=== PATIENT | female | born 1980 | race Caucasian/White ===

== ENCOUNTER → 2023-04-28 10:56 | Outpatient (REF) | payer BC, SELFPAY | LOC: RCS 10:56 | PROVIDERS: ATTENDING PHYSICIAN Nurse Practitioner Family | DX: R03.0 Elevated blood-pressure reading, without diagnosis of hypertension (principal); R00.2 Palpitations | CPT/HCPCS: 93005 ==

== ENCOUNTER → 2023-05-15 06:58 | Outpatient (REF) | payer BC, SELFPAY | LOC: RAD 06:58 | PROVIDERS: ATTENDING PHYSICIAN Internal Medicine Gastroenterology; FAMILY PHYSICIAN Nurse Practitioner Family | DX: K82.4 Cholesterolosis of gallbladder (principal) | CPT/HCPCS: 76700 ==

== ENCOUNTER → 2023-08-04 06:57 | Outpatient (REF) | payer BC, SELFPAY ==
[2023-08-04 07:29] LABS: Urine Albumin Negative (Neg - Trace); Urine Bilirubin Negative (Negative); Urine Character Clear (Clear); Urine Color Yellow; Urine Glucose Negative (Negative); Urine Ketone Negative (Negative); Urine Leukocyte Trace (Negative); Urine Nitrite Negative (Negative); Urine Occult Blood 1+ (Negative); Urine Specific Gravity 1.005 (<1.030); Urine Urobilinogen Negative (Neg - 1+)
[2023-08-04 07:41] LABS: % Eosinophils 1.5 % (0-6); % Immature Granulocytes 0.3 % (0-0.5); % Lymphocytes 24.6 % (20.5-51.1); % Monocytes 6.2 % (1.7-9.3); % Neutrophils 66.4 % (42.2-75.2); Absolute Basophils 0.1 10^3/uL (0-0.2); Absolute Eosinophils 0.1 10^3/uL (0-0.7); Absolute Lymphocytes 1.5 10^3/uL (1.2-3.4); Absolute Monocytes 0.4 10^3/uL (0.1-0.6); Absolute Neutrophils 4.1 10^3/uL (1.4-6.5); Hematocrit 33.9 % (37.0-47.0); Hemoglobin 10.1 g/dL (12.0-16.0); Mean Corp Hgb Conc. 29.8 g/dL (33.0-37.0); Mean Corpuscular Hgb 21.6 pg (27.0-31.0); Mean Corpuscular Volume 72.4 fL (81.0-99.0); Nucleated Red Blood Cells % 0 %; Platelet Count 201 10^3/uL (130-400); Red Blood Cell Count 4.68 10^6/uL (4.20-5.40); Red Cell Dist. Width 17.5 % (11.5-14.5); White Blood Cell Count 6.1 10^3/uL (4.8-10.8)
[2023-08-04 07:51] LABS: Urine Bacteria Few (Negative); Urine Red Blood Cell 0-2 /HPF (0-2); Urine Squamous Cell >30 /LPF (Few)
[2023-08-04 08:09] LABS: ALT (SGPT) 16 U/L (0-35); AST (SGOT) 21 U/L (14-36); Albumin 4.6 g/dl (3.5-5.0); Alkaline Phosphatase 90 U/L (38-126); Blood Urea Nitrogen 8 mg/dl (7-17); Calcium 10.1 mg/dl (8.4-10.2); Carbon Dioxide 26 mmol/L (22-30); Chloride 105 mmol/L (98-107); Glucose 98 mg/dl (70-99); HDL Cholesterol 89 mg/dl; Iron 33 ug/dl (37-170); LDL Cholesterol, Calculated 68 mg/dl; Potassium 4.4 mmol/L (3.5-5.1); Sodium 141 mmol/L (135-145); Total Bilirubin 0.5 mg/dl (0.2-1.3); Total Cholesterol 173 mg/dl (50-199); Total Protein 7.5 g/dl (6.3-8.2); Triglyceride 84 mg/dl (10-149); Very Low Density Lipoprotein 16 mg/dl (0-30); eGFR > 60.00
[2023-08-04 08:18] LABS: Percent Saturation 7 % (20-50); Total Iron Binding Capacity 435 ug/dl (265-497)
[2023-08-04 08:30] LABS: TSH Reflex To Free T4 1.29 uIU/ml (0.47-4.68)
[2023-08-04 08:34] LABS: Ferritin 3.8 ng/ml (6.24-137)
[2023-08-04 10:13] LABS: Vitamin D, 25-OH*** 53.9 ng/mL (30-80)
== END ==
LOC: REG 06:57
PROVIDERS: ATTENDING PHYSICIAN Nurse Practitioner Family
DX: D50.9 Iron deficiency anemia, unspecified (principal); Z00.00 Encounter for general adult medical examination without abnormal findings; E04.1 Nontoxic single thyroid nodule; Z13.29 Encounter for screening for other suspected endocrine disorder; D24.1 Benign neoplasm of right breast; R03.0 Elevated blood-pressure reading, without diagnosis of hypertension; E55.9 Vitamin D deficiency, unspecified; Z79.899 Other long term (current) drug therapy
CPT/HCPCS: 36415; 80053; 80061; 81003; 81015; 82306; 82728; 83540; 83550; 84443; 85025

== ENCOUNTER → 2023-08-23 14:58 | Outpatient (REF) | payer BC, SELFPAY | LOC: CPAP 14:58 | PROVIDERS: ATTENDING PHYSICIAN Obstetrics & Gynecology | DX: Z01.419 Encounter for gynecological examination (general) (routine) without abnormal findings (principal); Z12.4 Encounter for screening for malignant neoplasm of cervix; Z11.51 Encounter for screening for human papillomavirus (HPV) | CPT/HCPCS: 87624 ==

== ENCOUNTER 2023-09-02 11:53 | Emergency (ER) | payer BC, SELFPAY ==
[2023-09-02 11:56] VITALS: BP 191/124
[2023-09-02 12:20] LABS: % Basophils 0.7 % (0-2); % Eosinophils 0.4 % (0-6); % Immature Granulocytes 0.2 % (0-0.5); % Lymphocytes 19.7 % (20.5-51.1); % Monocytes 5.6 % (1.7-9.3); % Neutrophils 73.4 % (42.2-75.2); Absolute Basophils 0.1 10^3/uL (0-0.2); Absolute Lymphocytes 1.6 10^3/uL (1.2-3.4); Absolute Monocytes 0.5 10^3/uL (0.1-0.6); Absolute Neutrophils 6.1 10^3/uL (1.4-6.5); Hematocrit 36.6 % (37.0-47.0); Hemoglobin 11.6 g/dL (12.0-16.0); Mean Corp Hgb Conc. 31.7 g/dL (33.0-37.0); Mean Corpuscular Hgb 24.6 pg (27.0-31.0); Mean Corpuscular Volume 77.5 fL (81.0-99.0); Nucleated Red Blood Cells % 0 %; Red Blood Cell Count 4.72 10^6/uL (4.20-5.40); Red Cell Dist. Width 25.2 % (11.5-14.5); White Blood Cell Count 8.3 10^3/uL (4.8-10.8)
[2023-09-02 12:27] LABS: Urine Albumin Negative (Neg - Trace); Urine Bilirubin Negative (Negative); Urine Character Clear (Clear); Urine Color Yellow; Urine Glucose Negative (Negative); Urine Ketone 2+ (Negative); Urine Leukocyte Trace (Negative); Urine Nitrite Negative (Negative); Urine Occult Blood Negative (Negative); Urine Specific Gravity 1.015 (<1.030); Urine Urobilinogen Negative (Neg - 1+)
[2023-09-02 12:37] LABS: Normal RBC Morphology No
[2023-09-02 12:38] LABS: Anisocytosis 1+; Ovalocytes 1+
[2023-09-02 12:41] LABS: Urine Bacteria Few (Negative); Urine Red Blood Cell 0-2 /HPF (0-2); Urine Squamous Cell 16-20 /LPF (Few)
[2023-09-02 12:42] LABS: HCG, Serum Qualitative Screen Negative
[2023-09-02 12:44] LABS: ALT (SGPT) 19 U/L (0-35); AST (SGOT) 24 U/L (14-36); Albumin 4.8 g/dl (3.5-5.0); Alkaline Phosphatase 90 U/L (38-126); Blood Urea Nitrogen 8 mg/dl (7-17); Calcium 9.7 mg/dl (8.4-10.2); Carbon Dioxide 23 mmol/L (22-30); Chloride 106 mmol/L (98-107); Glucose 101 mg/dl (70-99); Potassium 3.8 mmol/L (3.5-5.1); Sodium 138 mmol/L (135-145); Total Bilirubin 0.9 mg/dl (0.2-1.3); Total Protein 7.5 g/dl (6.3-8.2); eGFR > 60.00
--- NOTE | 2023-09-02 14:08 | ED.GENMED ---
History of Present Illness
General
Chief Complaint: Urinary Symptoms
Source: patient
Exam Limitations: none
Time Seen by Provider: 09/02/23 14:08
Nursing documentation reviewed up to this point in time: agreed with
Travel History
Have you had any contact with someone who has COVID-19?: No
Do you have any symptoms of coronavirus? Fever > 100 degrees, chills, cough, shortness of breath, sore throat, loss of taste or smell, muscle aches, or headache?: No
History of Present Illness
History of Present Illness:
The patient is a pleasant 43-year-old female who reports that her urine appeared bright red like fruit punch yesterday. Patient reports she went to urgent care and a urine was sent but she does not have the results. Patient reports that she
developed right-sided back pain pinching around her lower abdomen last night. The symptoms have continued. Nothing makes the pain better or worse. Patient reports that her urine now appears normal in color and is no longer red. Patient reports
she has a history of kidney stones. She denies nausea and vomiting. She denies fever. In addition, patient reports that she has had elevated blood pressure since this past April and it has been followed by her primary care doctor without any
medication. Patient reports that she has a mild headache but denies vision changes, chest pain or shortness of breath.
Past History
Past History
ED Past Medical History: Other (Kidney stones)
ED Past Surgical History: Other (Breast surgery)
Social History
Tobacco: Non-smoker
Alcohol: Other
Personal:
Living: with family
Employment: Other
Family History
Family History: Negative Diabetes, Hypertension, Early CAD, Asthma or Cancer
Review of Systems
Review of Systems
Allergies reviewed?: Yes
All Other Systems: ROS reviewed and negative except as documented in HPI and ROS
Constitutional: Reports no symptoms
EENT: Reports no symptoms
Respiratory: Reports no symptoms
Cardiac: Reports no symptoms
ABD/GI: Reports abdominal pain
: Reports flank pain and bleeding
Musculoskeletal: Reports no symptoms
Skin: Reports no symptoms
Neurological: Reports no symptoms
Endocrine: Reports no symptoms
Hematologic/Lymphatic: Reports no symptoms
Psychiatric: Reports no symptoms
Phy Exam
Physical Exam
Physical Exam:
Physical Exam
General: no apparent distress, not acutely ill. Well and comfortable appearing
Neck: supple. no meningeal signs. normal psoterior pharynx
Heart: s1/s2 regular rate and rhythm, no murmur. equal radial pulses.
Lungs: no acute respiratory distress. clear bilaterally
Abdomen: normal bowel sounds. not tender. no CVAT. Soft and nontender throughout
Neuro: alert and oriented. no focal neurological deficits
Skin: no rash
Psychiatric: well kept. interactive and cooperative
Extremities: no edema. no calf tenderness. negative homans. good distal pulses
Course
Orders/Labs/Results
Orders:
Orders
09/02/23 12:02
EKG [Electrocardiogram (*1)] Urgent
Reason for Study: Hypertension, Benign
09/02/23 12:03
EKG- Treatment ONCE
Test Result ONCE
09/02/23 12:14
Complete Blood Count/With Diff Urgent
Comprehensive Metabolic Panel Urgent
HCG, Serum Qualitative Screen Urgent
Urinalysis Reflex To Culture Urgent
Date Specimen was Collected: 09/02/23
Time Specimen was Collected: 12:03
Urine Microscopic Reflex Cult Urgent
09/02/23 14:18
Hydrochlorothiazide [Oretic] 25 mg PO NOW STA
Nursing to Place Non Medication Order As Directed
Physician Order: repeat BP
Above order entered?: Yes
09/02/23 14:19
CT Abd/pel Without Iv Or Oral Urgent
Comment:
Reason For Exam: R flank pain, history of red urine
Abnormal Lab Results
09/02/23
12:14
Hgb 11.6 L g/dL
(12.0-16.0)
Hct 36.6 L %
(37.0-47.0)
MCV 77.5 L fL
(81.0-99.0)
MCH 24.6 L pg
(27.0-31.0)
MCHC 31.7 L g/dL
(33.0-37.0)
RDW 25.2 H %
(11.5-14.5)
Lymphocytes % 19.7 L %
(20.5-51.1)
Glucose 101 H mg/dl
(70-99)
Urine Ketones 2+ A
(Negative)
Leukocyte Esterase Rfl Trace A
(Negative)
Urine Bacteria (Reflex) Few A
(Negative)
09/02/23 12:14
09/02/23 12:14
Vital Signs
Initial and Last Documented VS:
Initial Vital Signs
Temp Pulse Resp BP Pulse Ox
98.0 F 95 18 191/124 100
09/02/23 11:56 09/02/23 11:56 09/02/23 11:56 09/02/23 11:56 09/02/23 11:56
Last Documented Vital Signs
Temp Pulse Resp BP Pulse Ox
98.0 F 94 18 177/101 100
09/02/23 11:56 09/02/23 14:25 09/02/23 11:56 09/02/23 14:25 09/02/23 11:56
MDM/Problems Addressed
Differential Diagnosis Includes:
Hypertensive urgency, renal colic, acute diverticulitis
MDM/Problems Addressed:
Patient presents with acute red urine that is now resolved and acute right flank pain
Chronic conditions affecting care:
Kidney stones. Patient's pain may be due to acute pain from chronic kidney stones
Chronic conditions affecting care: HTN
Acute Exacerbation and/or Progression of Chronic Illness:
Patient presents acutely hypertensive which may represent poorly controlled chronic hypertension
Acute Exacerbation and/or Progression of Chronic Illness: HTN
*Radiology
Radiology exam reviewed: radiology read reviewed
*Pulse Oximetry
Patient hypoxic: no
*EKG
Interpreted by ED Provider?: Yes
Interpretation: abnormal
Comparison EKG: no changes
Rate: normal
Rhythm: sinus
[place]: normal axis
Interval: normal interval
QRS Pattern: normal QRS
Ischemia: non-specific ST changes
*City Surveyor Interpretation
Rate: normal
Interpretation: normal
Rhythm: sinus
*Critical Care Note
Total Time (30-74mins, 75-104mins- exclusive of procedures): Not Applicable
Data Reviewed
Review of Other/Old Records Reveals: Labs (Hemoglobin in July 2023 was 10.1)
Source: patient
Update Note
Update Note:
5:00 PM patient continues to have no chest pain, shortness of breath or any severe headaches. There is no sign of hypertensive urgency or emergency. Patient's blood pressure has come down with hydrochlorothiazide. She assures me she will
follow-up with her doctor within 1 to 1-1/2 weeks to have her blood pressure rechecked. In regards to her bloody urine, her urine has been clear in the emergency department. She has had no significant pain in the emergency department nor nausea or
vomiting. Her right flank pain can be musculoskeletal in etiology. It is also possible that she could be passing a very small stone. There is no sign of renal failure or hydronephrosis. Urine does not look suspicious for UTI and patient denies
dysuria, fevers and chills.
ED Attending Note
-
Portions of this chart may have been created with voice recognition software.� Occasional wrong word or��sound alike� substitutions may have occurred due to the inherent limitations of voice recognition software.
Discharge Plan
Departure
Patient Disposition: Home (Routine Discharge)
Date of Disposition: 09/02/23
Time of Disposition: 17:02
Patient with high blood pressure during this ER visit?: Yes
Condition: Good
Covid-19: Not Applicable
Discharge Problem:
High blood pressure, Bilateral renal stones
Instructions: Kidney stones in adults, BLOOD PRESSURE
Prescriptions:
New
hydrochlorothiazide 25 mg tablet
25 mg PO DAILY Qty: 30 0RF
No Action
sulfamethoxazole-trimethoprim [Bactrim DS] 1 EACH tablet
1 ea PO BID
multivitamin with folic acid [Tab-A-Aquilino] 1 TABLET tablet
1 tab PO DAILY
Omeg 3-6-9
1 PO DAILY
ibuprofen 800 MG tablet
800 mg PO Q6HPRN PRN (Reason: pain) Qty: 20 0RF
tamsulosin 0.4 MG capsule
0.4 mg PO DAILY Qty: 14 0RF
Referrals:
Anne Cowan CRNP [Family Provider] -
Activity Restrictions/Additional Instructions:
Take such 600 mg of Motrin every 6-8 hours for pain. Please call and follow-up with urologist within 1 to 2 weeks. In addition, please follow-up with your doctor in about 1 week to have your blood pressure rechecked.
Interventions
Interventions:
*General Assessment Last Done: 09/02/23 11:56
ED-Female Genitourinary Assessment Last Done: 09/02/23 17:08
Discharge Date and Time
Print Language: GERMAN
[2023-09-02] MEDS: ORETIC 25 MG PO (14:25)
[2023-09-02 14:26] VITALS: BMI 24.6
[2023-09-02 17:51] VITALS: BP 163/105
== END 2023-09-02 17:53 | disposition home or self-care (01) ==
LOC: EMR 11:53
PROVIDERS: Emergency Medicine; EMERGENCY PHYSICIAN Emergency Medicine; FAMILY PHYSICIAN Nurse Practitioner Family
DX: R03.0 Elevated blood-pressure reading, without diagnosis of hypertension (principal); N20.0 Calculus of kidney; Z82.49 Family history of ischemic heart disease and other diseases of the circulatory system; Z87.442 Personal history of urinary calculi
CPT/HCPCS: 99284; 74176; 80053; 81003; 81015; 84703; 85025; 93005

== ENCOUNTER → 2023-09-06 09:42 | Outpatient (REF) | payer BC, SELFPAY | LOC: RAD 09:42 | PROVIDERS: ATTENDING PHYSICIAN Nurse Practitioner Family | DX: E04.1 Nontoxic single thyroid nodule (principal); R22.1 Localized swelling, mass and lump, neck | CPT/HCPCS: 70491; Q9967 ==

== ENCOUNTER → 2023-09-11 15:00 | Outpatient (REF) | payer BC, SELFPAY ==
[2023-09-11 15:40] LABS: Urine Albumin Negative (Neg - Trace); Urine Bilirubin Negative (Negative); Urine Character Clear (Clear); Urine Color Yellow; Urine Glucose Negative (Negative); Urine Ketone Negative (Negative); Urine Leukocyte Negative (Negative); Urine Nitrite Negative (Negative); Urine Occult Blood Trace (Negative); Urine Specific Gravity 1.005 (<1.030); Urine Urobilinogen Negative (Neg - 1+)
[2023-09-11 15:41] LABS: % Basophils 0.9 % (0-2); % Eosinophils 0.4 % (0-6); % Immature Granulocytes 0.3 % (0-0.5); % Lymphocytes 15.9 % (20.5-51.1); % Monocytes 5.8 % (1.7-9.3); % Neutrophils 76.7 % (42.2-75.2); Absolute Basophils 0.1 10^3/uL (0-0.2); Absolute Lymphocytes 1.4 10^3/uL (1.2-3.4); Absolute Monocytes 0.5 10^3/uL (0.1-0.6); Absolute Neutrophils 6.9 10^3/uL (1.4-6.5); Hematocrit 36.3 % (37.0-47.0); Hemoglobin 11.7 g/dL (12.0-16.0); Mean Corp Hgb Conc. 32.2 g/dL (33.0-37.0); Mean Corpuscular Hgb 25.1 pg (27.0-31.0); Mean Corpuscular Volume 77.7 fL (81.0-99.0); Nucleated Red Blood Cells % 0 %; Platelet Count 183 10^3/uL (130-400); Red Blood Cell Count 4.67 10^6/uL (4.20-5.40)
[2023-09-11 15:51] LABS: Urine Squamous Cell >30 /LPF (Few)
[2023-09-11 15:52] LABS: Urine Urothelial Cell 0-2 /LPF (FEW)
[2023-09-11 15:53] LABS: Urine Bacteria Few (Negative); Urine Red Blood Cell 0-2 /HPF (0-2)
[2023-09-11 16:00] LABS: Normal RBC Morphology No
[2023-09-11 16:01] LABS: Anisocytosis 1+; Ovalocytes 1+
[2023-09-11 16:07] LABS: ALT (SGPT) 21 U/L (0-35); AST (SGOT) 25 U/L (14-36); Albumin 4.6 g/dl (3.5-5.0); Alkaline Phosphatase 80 U/L (38-126); Blood Urea Nitrogen 6 mg/dl (7-17); Calcium 9.7 mg/dl (8.4-10.2); Carbon Dioxide 27 mmol/L (22-30); Chloride 104 mmol/L (98-107); Glucose 99 mg/dl (70-99); Potassium 3.8 mmol/L (3.5-5.1); Sodium 139 mmol/L (135-145); Total Bilirubin 0.5 mg/dl (0.2-1.3); Total Protein 7.1 g/dl (6.3-8.2); eGFR > 60.00
== END ==
LOC: REG 15:00
PROVIDERS: ATTENDING PHYSICIAN Nurse Practitioner Family
DX: R10.12 Left upper quadrant pain (principal); N20.0 Calculus of kidney; R31.0 Gross hematuria
CPT/HCPCS: 80053; 81003; 81015; 85025

== ENCOUNTER 2023-09-12 06:23 | Emergency (ER) | payer BC, SELFPAY ==
[2023-09-12 06:23] VITALS: BMI 25.0
[2023-09-12 06:27] VITALS: BP 150/98
[2023-09-12 07:59] VITALS: BP 139/87
[2023-09-12] MEDS: TORADOL 15 MG IV (08:08)
[2023-09-12] MEDS: MAALOX 40 PO (08:10)
[2023-09-12] MEDS: PROTONIX IV 40 MG IV (08:10)
[2023-09-12] MEDS: NSS 500 IV (08:11)
[2023-09-12 08:18] LABS: % Basophils 0.5 % (0-2); % Eosinophils 0.4 % (0-6); % Immature Granulocytes 0.4 % (0-0.5); % Monocytes 6.7 % (1.7-9.3); Absolute Basophils 0.1 10^3/uL (0-0.2); Absolute Lymphocytes 1.2 10^3/uL (1.2-3.4); Absolute Monocytes 0.6 10^3/uL (0.1-0.6); Absolute Neutrophils 7.5 10^3/uL (1.4-6.5); Hematocrit 35.8 % (37.0-47.0); Hemoglobin 11.7 g/dL (12.0-16.0); Mean Corp Hgb Conc. 32.7 g/dL (33.0-37.0); Mean Corpuscular Hgb 25.4 pg (27.0-31.0); Mean Corpuscular Volume 77.8 fL (81.0-99.0); Nucleated Red Blood Cells % 0 %; White Blood Cell Count 9.4 10^3/uL (4.8-10.8)
[2023-09-12 08:22] LABS: HCG, Serum Qualitative Screen Negative
[2023-09-12 08:24] LABS: ALT (SGPT) 20 U/L (0-35); AST (SGOT) 24 U/L (14-36); Albumin 4.3 g/dl (3.5-5.0); Alkaline Phosphatase 82 U/L (38-126); Blood Urea Nitrogen 7 mg/dl (7-17); Calcium 9.6 mg/dl (8.4-10.2); Carbon Dioxide 24 mmol/L (22-30); Chloride 108 mmol/L (98-107); Estimated Creatinine Clearance 89 ml/min; Glucose 95 mg/dl (70-99); Lipase 62 U/L (23-300); Potassium 4.1 mmol/L (3.5-5.1); Sodium 140 mmol/L (135-145); Total Bilirubin 0.7 mg/dl (0.2-1.3); Total Protein 6.8 g/dl (6.3-8.2); eGFR > 60.00
--- NOTE | 2023-09-12 08:32 | ED.GENMED ---
History of Present Illness
General
Chief Complaint: Abdominal Pain
Source: patient
Exam Limitations: none
Time Seen by Provider: 09/12/23 07:56
Nursing documentation reviewed up to this point in time: agreed with
History of Present Illness
History of Present Illness:
Patient presents to ED secondary to intermittent episodes of upper abdominal pain over the past 3 days. Abdominal pain described as sharp, nonradiating, without any alleviating or exacerbating factors. Denies loss of appetite. Denies fever or
chills. Denies diarrhea. Denies vomiting. Denies recent change in medications or diet. Denies sick contact. Denies previous history of similar symptoms. Patient states that she has had history of kidney stones, but her symptoms are different.
Denies any previous history of abdominal surgery. Denies change in bowel habits.
Past History
Past History
ED Past Medical History: Other (Kidney stones)
ED Past Surgical History: Other (Breast surgery)
Social History
Tobacco: Non-smoker
Alcohol: Other
Personal:
Living: with family
Employment: Other
Family History
Family History: Negative Diabetes, Hypertension, Early CAD, Asthma or Cancer
Review of Systems
Review of Systems
Allergies reviewed?: Yes
All Other Systems: ROS reviewed and negative except as documented in HPI and ROS
Constitutional: Reports no symptoms; Denies fever or chills
Respiratory: Reports no symptoms; Denies cough
ABD/GI: Reports abdominal pain; Denies nausea, vomiting or diarrhea
: Reports no symptoms; Denies dysuria, frequency, flank pain or urgency
Musculoskeletal: Reports no symptoms
Skin: Reports no symptoms
Neurological: Reports no symptoms
Phy Exam
Physical Exam
Physical Exam:
Physical Exam
General: mild painful distress, not acutely ill. afebrile
Head: nc/at. eomi
Neck: supple. no meningeal signs.
Heart: s1/s2 regular rate and rhythm, no murmur. equal radial pulses.
Lungs: no acute respiratory distress. clear bilaterally
Abdomen: normal bowel sounds. no distention. mild epigastric tenderness to palpation.
Neuro: alert and oriented. no focal neurological deficits
Skin: no rash
Psychiatric: well kept. interactive and cooperative
Extremities: no edema. no calf tenderness.
Course
Orders/Labs/Results
Orders:
Orders
09/12/23 07:53
Test Result ONCE
09/12/23 07:55
Complete Blood Count/With Diff Urgent
Comprehensive Metabolic Panel Urgent
HCG, Serum Qualitative Screen Urgent
Lipase Urgent
Monotest Urgent
Comment: ADD ON
09/12/23 08:04
Ketorolac [Toradol] 15 mg IV NOW STA
US Abdomen Complete/Upper Urgent
Comment:
Reason For Exam: epigastric pain
09/12/23 08:05
0.9% Sodium Chloride 500 ml [Nss] 500 ml IV BOLUS
Mag Hydrox/Al Hydrox/Simeth [Maalox] 30 ml Phenobarb/Hyoscy/Atropine/Scop [] 10 ml PO NOW
Pantoprazole [Protonix IV] 40 mg IV NOW STA
09/12/23 08:07
Mag Hydrox/Al Hydrox/Simeth [Maalox] 30 ml .ROUTE .STK-MED ONE
Phenobarb/Hyoscy/Atropine/Scop [] 10 ml .ROUTE .STK-MED ONE
09/12/23 08:35
Add On- LAB Urgent
Tests Added?: monotest
09/12/23 08:47
Urinalysis Reflex To Culture Urgent
Date Specimen was Collected: 09/12/23
Time Specimen was Collected: 08:33
Urine Microscopic Reflex Cult Urgent
Abnormal Lab Results
09/12/23 09/12/23
0755 08:47
Hgb 11.7 L g/dL
(12.0-16.0)
Hct 35.8 L %
(37.0-47.0)
MCV 77.8 L fL
(81.0-99.0)
MCH 25.4 L pg
(27.0-31.0)
MCHC 32.7 L g/dL
(33.0-37.0)
Absolute Neuts (auto) 7.5 H 10^3/uL
(1.4-6.5)
Neutrophils % 79.0 H %
(42.2-75.2)
Lymphocytes % 13.0 L %
(20.5-51.1)
Chloride 108 H mmol/L
(98-107)
Ur Occult Blood Reflex Trace A
(Negative)
Leukocyte Esterase Rfl Trace A
(Negative)
09/12/23 07:55
09/12/23 07:55
Vital Signs
Initial and Last Documented VS:
Initial Vital Signs
Temp Pulse Resp BP Pulse Ox
98.6 F 100 22 150/98 100
09/12/23 06:27 09/12/23 06:27 09/12/23 06:27 09/12/23 06:27 09/12/23 06:27
Last Documented Vital Signs
Temp Pulse Resp BP Pulse Ox
98.6 F 79 16 139/87 100
09/12/23 06:27 09/12/23 07:59 09/12/23 07:59 09/12/23 07:59 09/12/23 07:59
MDM/Problems Addressed
MDM/Problems Addressed:
Patient reports improvement in symptoms after treatment. Patient with an unremarkable workup in ED, including blood work, urinalysis, and abdominal ultrasound. History and exam consistent with nonspecific upper abdominal pain, i.e. gastritis
versus ulcer versus viral illness versus biliary disease versus pancreatitis. Otherwise, patient is afebrile, hemodynamically stable, and nontoxic-appearing. Recommended bland diet, along with continual hydration as well as PPI as an outpatient,
along with PCP follow-up. Advised to return to ED with worsening symptoms, i.e. fever/worsening pain/vomiting. Patient expresses understanding at time of discharge.
*Critical Care Note
Total Time (30-74mins, 75-104mins- exclusive of procedures): Not Applicable
ED Attending Note
-
Portions of this chart may have been created with voice recognition software.� Occasional wrong word or��sound alike� substitutions may have occurred due to the inherent limitations of voice recognition software.
Discharge Plan
Departure
Patient Disposition: Home (Routine Discharge)
Date of Disposition: 09/12/23
Time of Disposition: 10:17
Patient with high blood pressure during this ER visit?: Yes
Condition: Good
Discharge Problem:
Abdominal pain
Instructions: [place] Diet, Abdominal Pain
Prescriptions:
No Action
sulfamethoxazole-trimethoprim [Bactrim DS] 1 EACH tablet
1 ea PO BID
multivitamin with folic acid [Tab-A-Aquilino] 1 TABLET tablet
1 tab PO DAILY
Omeg 3-6-9
1 PO DAILY
ibuprofen 800 MG tablet
800 mg PO Q6HPRN PRN (Reason: pain) Qty: 20 0RF
tamsulosin 0.4 MG capsule
0.4 mg PO DAILY Qty: 14 0RF
hydrochlorothiazide 25 mg tablet
25 mg PO DAILY Qty: 30 0RF
Referrals:
Anne Cowan CRNP [Family Provider] -
Activity Restrictions/Additional Instructions:
As discussed, please follow-up with your primary care physician for reevaluation. Please return to ED with worsening symptoms, i.e. fever/worsening pain/vomiting.
Interventions
Interventions:
*Risk Screen - Suicide Last Done: 09/12/23 06:27
*General Assessment Last Done: 09/12/23 07:52
*Neglect/Abuse Screening Last Done: 09/12/23 06:27
ED- Fall Risk Assessment Last Done: 09/12/23 10:34
*ED COVID-19 Vaccine History Last Done: 09/12/23 07:52
*Nursing Disposition Last Done: 09/12/23 10:34
YQ-[id number]-Rwyvqbwnfk Assessment Last Done: 09/12/23 07:52
Discharge Date and Time
Discharge Date/Time: 09/12/23 10:34
Print Language: AMHARIC
[2023-09-12 08:55] LABS: Platelet Count 164 10^3/uL (130-400)
[2023-09-12 08:56] LABS: Anisocytosis 1+; Normal RBC Morphology No; Ovalocytes 1+
[2023-09-12 09:05] LABS: Urine Albumin Negative (Neg - Trace); Urine Bilirubin Negative (Negative); Urine Character Clear (Clear); Urine Color Yellow; Urine Glucose Negative (Negative); Urine Ketone Negative (Negative); Urine Leukocyte Trace (Negative); Urine Nitrite Negative (Negative); Urine Occult Blood Trace (Negative); Urine Specific Gravity 1.005 (<1.030); Urine Urobilinogen Negative (Neg - 1+)
[2023-09-12 09:50] LABS: Monotest Negative (Negative)
[2023-09-12 10:03] LABS: Urine Squamous Cell >30 /LPF (Few)
[2023-09-12 10:04] LABS: Urine Amorphous Seen; Urine Red Blood Cell 0-2 /HPF (0-2)
== END 2023-09-12 10:34 | disposition home or self-care (01) ==
LOC: EMR 06:23
PROVIDERS: Emergency Medicine; EMERGENCY PHYSICIAN Emergency Medicine; FAMILY PHYSICIAN Nurse Practitioner Family
DX: R10.10 Upper abdominal pain, unspecified (principal); R03.0 Elevated blood-pressure reading, without diagnosis of hypertension; K57.90 Diverticulosis of intestine, part unspecified, without perforation or abscess without bleeding; Z87.442 Personal history of urinary calculi; Z86.16 Personal history of COVID-19; Z87.440 Personal history of urinary (tract) infections
CPT/HCPCS: 99284; 96374; 96375; 76700; 80053; 81003; 81015; 83690; 84703; 85025; 86308

== ENCOUNTER → 2023-09-13 08:58 | Outpatient (REF) | payer BC, SELFPAY | LOC: HWRAD 08:58 | PROVIDERS: ATTENDING PHYSICIAN Obstetrics & Gynecology; FAMILY PHYSICIAN Nurse Practitioner Family | DX: N92.4 Excessive bleeding in the premenopausal period (principal) | CPT/HCPCS: 76830; 76856 ==

== ENCOUNTER → 2023-09-19 07:40 | Outpatient (REF) | payer BC, SELFPAY | LOC: WDC 07:40 | PROVIDERS: ATTENDING PHYSICIAN Surgery; FAMILY PHYSICIAN Nurse Practitioner Family | DX: R92.8 Other abnormal and inconclusive findings on diagnostic imaging of breast (principal) | CPT/HCPCS: 76642 ==

== ENCOUNTER → 2023-11-14 14:51 | Outpatient (REF) | payer BC, SELFPAY ==
[2023-11-14 15:30] LABS: Urine Albumin Negative (Neg - Trace); Urine Bilirubin Negative (Negative); Urine Character Clear (Clear); Urine Color Yellow; Urine Glucose Negative (Negative); Urine Ketone Negative (Negative); Urine Leukocyte Trace (Negative); Urine Nitrite Negative (Negative); Urine Occult Blood Negative (Negative); Urine Urobilinogen Negative (Neg - 1+)
[2023-11-14 15:32] LABS: % Basophils 0.8 % (0-2); % Eosinophils 0.9 % (0-6); % Immature Granulocytes 0.3 % (0-0.5); % Lymphocytes 21.7 % (20.5-51.1); % Neutrophils 70.3 % (42.2-75.2); Absolute Basophils 0.1 10^3/uL (0-0.2); Absolute Eosinophils 0.1 10^3/uL (0-0.7); Absolute Lymphocytes 2.1 10^3/uL (1.2-3.4); Absolute Monocytes 0.6 10^3/uL (0.1-0.6); Absolute Neutrophils 6.7 10^3/uL (1.4-6.5); Hematocrit 40.5 % (37.0-47.0); Hemoglobin 13.5 g/dL (12.0-16.0); Mean Corp Hgb Conc. 33.3 g/dL (33.0-37.0); Mean Corpuscular Volume 86.9 fL (81.0-99.0); Mean Platelet Volume 11.2 fL (7.4-10.4); Nucleated Red Blood Cells % 0 %; Platelet Count 200 10^3/uL (130-400); Red Blood Cell Count 4.66 10^6/uL (4.20-5.40); Red Cell Dist. Width 15.9 % (11.5-14.5); White Blood Cell Count 9.5 10^3/uL (4.8-10.8)
[2023-11-14 15:42] LABS: Iron 236 ug/dl (37-170)
[2023-11-14 15:51] LABS: Percent Saturation 70 % (20-50); Total Iron Binding Capacity 333 ug/dl (265-497)
[2023-11-14 15:55] LABS: Urine Red Blood Cell 0-2 /HPF (0-2); Urine Squamous Cell 16-20 /LPF (Few); Urine White Cell 0-2 /HPF (0-5)
[2023-11-14 15:56] LABS: Urine Bacteria Few (Negative)
[2023-11-14 16:18] LABS: Ferritin 12.8 ng/ml (6.24-137)
== END ==
LOC: CLAB 14:51
PROVIDERS: ATTENDING PHYSICIAN Nurse Practitioner Family
DX: R31.21 Asymptomatic microscopic hematuria (principal); D50.9 Iron deficiency anemia, unspecified
CPT/HCPCS: 36415; 81003; 81015; 82728; 83540; 83550; 85025; 87086

== ENCOUNTER → 2023-11-22 07:32 | Outpatient (REF) | payer BC, SELFPAY | LOC: HWRAD 07:32 | PROVIDERS: ATTENDING PHYSICIAN Obstetrics & Gynecology; FAMILY PHYSICIAN Internal Medicine Geriatric Medicine | DX: N83.201 Unspecified ovarian cyst, right side (principal) | CPT/HCPCS: 76830; 76856 ==

== ENCOUNTER → 2024-05-29 06:45 | Outpatient (REF) | payer BC, SELFPAY ==
[2024-05-29 08:08] LABS: % Basophils 0.8 % (0-2); % Immature Granulocytes 0.4 % (0-0.5); % Lymphocytes 22.4 % (20.5-51.1); % Monocytes 7.1 % (1.7-9.3); % Neutrophils 68.3 % (42.2-75.2); Absolute Basophils 0.1 10^3/uL (0-0.2); Absolute Eosinophils 0.1 10^3/uL (0-0.7); Absolute Lymphocytes 1.7 10^3/uL (1.2-3.4); Absolute Monocytes 0.5 10^3/uL (0.1-0.6); Absolute Neutrophils 5.2 10^3/uL (1.4-6.5); Hematocrit 41.5 % (37.0-47.0); Hemoglobin 13.5 g/dL (12.0-16.0); Mean Corp Hgb Conc. 32.5 g/dL (33.0-37.0); Mean Corpuscular Hgb 28.7 pg (27.0-31.0); Mean Corpuscular Volume 88.3 fL (81.0-99.0); Mean Platelet Volume 12.9 fL (7.4-10.4); Nucleated Red Blood Cells % 0 %; Platelet Count 200 10^3/uL (130-400); Red Cell Dist. Width 15.5 % (11.5-14.5); White Blood Cell Count 7.7 10^3/uL (4.8-10.8)
[2024-05-29 08:35] LABS: ALT (SGPT) 23 U/L (0-35); AST (SGOT) 23 U/L (14-36); Albumin 4.4 g/dl (3.5-5.0); Alkaline Phosphatase 81 U/L (38-126); Blood Urea Nitrogen 8 mg/dl (7-17); Calcium 9.9 mg/dl (8.4-10.2); Carbon Dioxide 29 mmol/L (22-30); Chloride 101 mmol/L (98-107); Glucose 90 mg/dl (70-99); Iron 128 ug/dl (37-170); Potassium 4.5 mmol/L (3.5-5.1); Sodium 138 mmol/L (135-145); Total Bilirubin 0.9 mg/dl (0.2-1.3); Total Protein 6.9 g/dl (6.3-8.2); eGFR > 60.00
[2024-05-29 08:44] LABS: Percent Saturation 36 % (20-50); Total Iron Binding Capacity 351 ug/dl (265-497)
[2024-05-29 09:14] LABS: Vitamin D, 25-OH*** 69.4 ng/mL (30-80)
== END ==
LOC: REG 06:45
PROVIDERS: ATTENDING PHYSICIAN Nurse Practitioner Family
DX: I10 Essential (primary) hypertension (principal); D50.9 Iron deficiency anemia, unspecified; E55.9 Vitamin D deficiency, unspecified
CPT/HCPCS: 36415; 80053; 82306; 82728; 83540; 83550; 85025

== ENCOUNTER → 2024-08-27 09:00 | Outpatient (REF) | payer BC, SELFPAY | LOC: CPAP 09:00 | PROVIDERS: ATTENDING PHYSICIAN Obstetrics & Gynecology Gynecology | DX: Z01.419 Encounter for gynecological examination (general) (routine) without abnormal findings (principal) | CPT/HCPCS: 87624 ==

== ENCOUNTER 2024-10-21 20:16 | Emergency (ER) | payer OTHER, BC, SELFPAY ==
[2024-10-21 20:29] VITALS: BP 162/103
[2024-10-21 21:09] LABS: Hematocrit 38.5 % (37.0-47.0); Hemoglobin 12.9 g/dL (12.0-16.0); Mean Corp Hgb Conc. 33.5 g/dL (33.0-37.0); Mean Corpuscular Volume 86.5 fL (81.0-99.0); Nucleated Red Blood Cells % 0 %; Platelet Count 203 10^3/uL (130-400); Red Cell Dist. Width 13.1 % (11.5-14.5)
[2024-10-21 21:17] LABS: ALT (SGPT) 19 U/L (0-35); AST (SGOT) 19 U/L (14-36); Albumin 4.9 g/dl (3.5-5.0); Alkaline Phosphatase 86 U/L (38-126); Blood Urea Nitrogen 13 mg/dl (7-17); Calcium 10.2 mg/dl (8.4-10.2); Carbon Dioxide 26 mmol/L (22-30); Chloride 105 mmol/L (98-107); Glucose 102 mg/dl (70-99); Potassium 3.9 mmol/L (3.5-5.1); Sodium 141 mmol/L (135-145); Total Protein 7.6 g/dl (6.3-8.2); eGFR > 60.00
[2024-10-21 21:28] LABS: Troponin I < 0.012 ng/ml
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
[2024-10-22] MEDS: MOTRIN 600 MG PO (00:14)
[2024-10-22 00:19] VITALS: BP 154/98
[2024-10-22 01:01] VITALS: BP 154/98
== END 2024-10-22 01:02 | disposition home or self-care (01) ==
LOC: EMR 20:16
PROVIDERS: EMERGENCY PHYSICIAN Emergency Medicine; FAMILY PHYSICIAN Internal Medicine Geriatric Medicine
DX: S13.4XXA Sprain of ligaments of cervical spine, initial encounter (principal); I10 Essential (primary) hypertension; V49.40XA Driver injured in collision with unspecified motor vehicles in traffic accident, initial encounter; Y92.410 Unspecified street and highway as the place of occurrence of the external cause
CPT/HCPCS: 99284; 71046; 80053; 84484; 85025; 93005

== ENCOUNTER → 2024-10-23 08:07 | Outpatient (REF) | payer BC, SELFPAY ==
[2024-10-23 10:24] LABS: Hematocrit 34.6 % (37.0-47.0); Hemoglobin 11.2 g/dL (12.0-16.0); Mean Corp Hgb Conc. 32.4 g/dL (33.0-37.0); Mean Corpuscular Volume 89.6 fL (81.0-99.0); Nucleated Red Blood Cells % 0 %; Platelet Count 215 10^3/uL (130-400); Red Cell Dist. Width 13.2 % (11.5-14.5)
== END ==
LOC: REG 08:07
PROVIDERS: ATTENDING PHYSICIAN Nurse Practitioner Adult Health; FAMILY PHYSICIAN Internal Medicine Geriatric Medicine
DX: N93.9 Abnormal uterine and vaginal bleeding, unspecified (principal)
CPT/HCPCS: 36415; 85025

== ENCOUNTER → 2024-10-30 09:44 | Outpatient (REF) | payer BC, SELFPAY | LOC: HWRAD 09:44 | PROVIDERS: ATTENDING PHYSICIAN Obstetrics & Gynecology Gynecology; FAMILY PHYSICIAN Internal Medicine Geriatric Medicine | DX: N93.9 Abnormal uterine and vaginal bleeding, unspecified (principal) | CPT/HCPCS: 76830; 76856 ==

== ENCOUNTER → 2024-11-05 07:28 | Outpatient (REF) | payer BC, SELFPAY | LOC: WDC 07:28 | PROVIDERS: ATTENDING PHYSICIAN Surgery; FAMILY PHYSICIAN Internal Medicine Geriatric Medicine | DX: Z91.89 Other specified personal risk factors, not elsewhere classified (principal) | CPT/HCPCS: 76641 ==

== ENCOUNTER → 2024-11-05 12:12 | Outpatient (REF) | payer BC, SELFPAY | LOC: CLAB 12:12 | PROVIDERS: ATTENDING PHYSICIAN Obstetrics & Gynecology Gynecology | DX: N39.9 Disorder of urinary system, unspecified (principal) | CPT/HCPCS: 88305 ==